=== PATIENT | female | born 1935 | race Two or more races ===

== ENCOUNTER → 2024-03-14 | Emergency (ER) | payer OTHER ==
[~2024-03-14] VITALS: Ht 160 cm; Wt 49.9 kg
[~2024-03-14] MED LIST: COZAAR100 MG PO; LIPITOR40 M1 PO; TRAMADOL HCL 50 MG TABLET PO STA
[2024-03-14 19:27] VITALS: BP 155/78; O2SAT 99
== END | disposition home or self-care (01) ==
LOC: ER 18:12
DX: M25.511 Pain in right shoulder (principal); Z88.6 Allergy status to analgesic agent